=== PATIENT | male | born 1950 | race American Indian/Alaskan Native ===

== ENCOUNTER 2019-06-01 09:33 | Inpatient (IN) | payer OTHER, MEDICARE ==
[2019-06-01] MEDS ORDERED: methylPREDNISolone Sod Succinate 125 MG/2 ML INJ IV ONE (10:05)
[2019-06-01 10:32] LABS: Basophils % (Auto) 0.2 % (0.0-1.8); Eosinophils # (Auto) 0.1 K/mm3 (0.0-0.4); Eosinophils % (Auto) 0.8 % (0.0-4.3); Hematocrit 43.8 % (35.5-45.6); Hemoglobin 14.8 gm/dl (11.8-15.2); Lymphocytes # (Auto) 1.2 K/mm3 (1.2-5.4); Lymphocytes % (Auto) 12.1 % (13.4-35.0); Mean Corpuscular HGB Conc 34 % (32-34); Mean Corpuscular Volume 89 fl (84-94); Monocytes # (Auto) 0.6 K/mm3 (0.0-0.8); Monocytes % (Auto) 6.4 % (0.0-7.3); Platelet Count 186 K/mm3 (140-440); Red Blood Count 4.94 M/mm3 (3.65-5.03); Red Cell Distribution Width 13.5 % (13.2-15.2)
--- NOTE | 2019-06-01 10:35 | XRay Report ---
CHEST 1 VIEW INDICATION / CLINICAL INFORMATION: sob. Dyspnea. COMPARISON: None available. FINDINGS: SUPPORT DEVICES: None. HEART / MEDIASTINUM: No significant abnormality. LUNGS / PLEURA: Severe bilateral airspace pneumonia with small left pleural effusion. Signer Name: Jag Sylvester MD Signed: 06/01/2019 10:30 AM Workstation Name: [id number]
[2019-06-01 10:52] LABS: Alanine Aminotransferase 18 units/L (7-56); Albumin 3.7 g/dL (3.9-5); BUN/Creatinine Ratio 24; Blood Urea Nitrogen 17 mg/dL (9-20); Calcium 8.7 mg/dL (8.4-10.2); Hemolysis Index 13
--- NOTE | 2019-06-01 11:00 | Emergency Department Report ---
ED General Adult HPI - General Chief complaint: Dyspnea/Respdistress Stated complaint: SOB Time Seen by Provider: 06/01/19 10:05 Source: patient, EMS Mode of arrival: Stretcher Limitations: No Limitations - History of Present Illness Initial comments: The patient presents to the emergency department with a chief complaint of shortness of breath and not feeling well for the last couple days. Patient states his morning shortness breath came worse especially with walking. Upon EMS arrival the patient's O2 sats were in the low 80s. Patient does not have a history of COPD or asthma. She denies any chest pain, abdominal pain, or headache. -: Sudden Severity scale (0 -10): 0 Consistency: constant Improves with: none Worsens with: none Associated Symptoms: denies other symptoms Treatments Prior to Arrival: none - Related Data Home Medications Medication Instructions Recorded Confirmed Last Taken No Known Home Medications [No 03/17/15 03/17/15 Unknown Reported Home Medications] Allergies Allergy/AdvReac Type Severity Reaction Status Date / Time No Known Allergies Allergy Verified 03/17/15 19:42 ED Review of Systems ROS: Stated complaint: SOB Other details as noted in HPI Comment: All other systems reviewed and negative Constitutional: denies: chills, fever Eyes: denies: eye pain, eye discharge, vision change ENT: denies: ear pain, throat pain Respiratory: shortness of breath. denies: cough, wheezing Cardiovascular: denies: chest pain, palpitations Endocrine: no symptoms reported Gastrointestinal: denies: abdominal pain, nausea, diarrhea Genitourinary: denies: urgency, dysuria Musculoskeletal: denies: back pain, joint swelling, arthralgia Skin: denies: rash, lesions Neurological: denies: headache, weakness, paresthesias Psychiatric: denies: anxiety, depression Hematological/Lymphatic: denies: easy bleeding, easy bruising ED Past Medical Hx - Past Medical History Previous Medical History?: Yes Hx Diabetes: Yes (BORDERLINE,not on meds) - Surgical History Past Surgical History?: No Additional Surgical History: BILATERAL ROTATOR CUFF - Social History Smoking Status: Current Every Day Smoker Substance Use Type: Alcohol, Cocaine - Medications Home Medications: Home Medications Medication Instructions Recorded Confirmed Last Taken Type No Known Home Medications [No 03/17/15 03/17/15 Unknown History Reported Home Medications] ED Physical Exam - General Limitations: No Limitations General appearance: alert, in no apparent distress - Head Head exam: Present: atraumatic, normocephalic - Eye Eye exam: Present: normal appearance, PERRL, EOMI - ENT ENT exam: Present: mucous membranes moist - Neck Neck exam: Present: normal inspection - Respiratory Respiratory exam: Present: rales (rales B/L). Absent: respiratory distress - Cardiovascular Cardiovascular Exam: Present: normal rhythm, tachycardia. Absent: systolic murmur, diastolic murmur, rubs, gallop - GI/Abdominal GI/Abdominal exam: Present: soft, normal bowel sounds. Absent: distended, tenderness - Rectal Rectal exam: Present: deferred - Extremities Exam Extremities exam: Present: normal inspection - Back Exam Back exam: Present: normal inspection - Neurological Exam Neurological exam: Present: alert, oriented X3, CN II-XII intact. Absent: motor sensory deficit - Psychiatric Psychiatric exam: Present: normal affect, normal mood - Skin Skin exam: Present: warm, dry, intact, normal color. Absent: rash ED Course Vital Signs 06/01/19 06/01/19 06/01/19 09:40 09:46 09:47 Temperature 97.6 F Pulse Rate 108 H 108 H 108 H Respiratory 34 H 23 35 H Rate Blood Pressure 146/86 146/86 O2 Sat by Pulse 93 92 92 Oximetry 06/01/19 06/01/19 06/01/19 10:00 10:16 10:30 Temperature Pulse Rate 103 H 104 H 113 H Respiratory 27 H 29 H 26 H Rate Blood Pressure 137/86 148/88 161/94 O2 Sat by Pulse 92 94 94 Oximetry 06/01/19 06/01/19 06/01/19 10:46 10:59 11:00 Temperature Pulse Rate 103 H 102 H Respiratory 24 24 25 H Rate Blood Pressure 146/89 152/85 O2 Sat by Pulse 90 90 96 Oximetry 06/01/19 06/01/19 06/01/19 11:16 11:30 11:46 Temperature Pulse Rate 103 H 105 H 104 H Respiratory 19 21 26 H Rate Blood Pressure 140/85 158/91 156/87 O2 Sat by Pulse 94 93 92 Oximetry 06/01/19 06/01/19 12:00 12:30 Temperature Pulse Rate 102 H 105 H Respiratory 20 26 H Rate Blood Pressure 154/87 154/87 O2 Sat by Pulse 93 93 Oximetry ED Medical Decision Making - Lab Data Result diagrams: 06/01/19 10:16 06/01/19 10:16 Lab Results 06/01/19 06/01/19 06/01/19 Range/Units 10:16 10:16 10:16 WBC 10.1 (4.5-11.0) K/mm3 RBC 4.94 (3.65-5.03) M/mm3 Hgb 14.8 (11.8-15.2) gm/dl Hct 43.8 (35.5-45.6) % MCV 89 (84-94) fl MCH 30 (28-32) pg MCHC 34 (32-34) % RDW 13.5 (13.2-15.2) % Plt Count 186 (140-440) K/mm3 Lymph % (Auto) 12.1 L (13.4-35.0) % [place] % (Auto) 6.4 (0.0-7.3) % Eos % (Auto) 0.8 (0.0-4.3) % Baso % (Auto) 0.2 (0.0-1.8) % Lymph # 1.2 (1.2-5.4) K/mm3 [place] # 0.6 (0.0-0.8) K/mm3 Eos # 0.1 (0.0-0.4) K/mm3 Baso # 0.0 (0.0-0.1) K/mm3 Seg Neutrophils % 80.5 H (40.0-70.0) % Seg Neutrophils # 8.1 H (1.8-7.7) K/mm3 Sodium 137 (137-145) mmol/L Potassium 3.7 (3.6-5.0) mmol/L Chloride 101.8 (98-107) mmol/L Carbon Dioxide 21 L (22-30) mmol/L Anion Gap 18 mmol/L BUN 17 (9-20) mg/dL Creatinine 0.7 L (0.8-1.5) mg/dL Estimated GFR > 60 ml/min BUN/Creatinine Ratio 24 % Glucose 148 H (75-100) mg/dL Lactic Acid (0.7-2.0) mmol/L Calcium 8.7 (8.4-10.2) mg/dL Total Bilirubin 0.40 (0.1-1.2) mg/dL AST 21 (5-40) units/L ALT 18 (7-56) units/L Alkaline Phosphatase 54 (35-129) units/L Troponin T < 0.010 (0.00-0.029) ng/mL NT-Pro-B Natriuret Pep 567.6 (0-900) pg/mL Total Protein 6.6 (6.3-8.2) g/dL Albumin 3.7 L (3.9-5) g/dL Albumin/Globulin Ratio 1.3 % Urine Opiates Screen Urine Methadone Screen Ur Barbiturates Screen Ur Phencyclidine Scrn Ur Amphetamines Screen U Benzodiazepines Scrn Urine Cocaine Screen U Marijuana (THC) Screen Drugs of Abuse Note 06/01/19 06/01/19 06/01/19 Range/Units 10:58 11:57 11:57 WBC (4.5-11.0) K/mm3 RBC (3.65-5.03) M/mm3 Hgb (11.8-15.2) gm/dl Hct (35.5-45.6) % MCV (84-94) fl MCH (28-32) pg MCHC (32-34) % RDW (13.2-15.2) % Plt Count (140-440) K/mm3 Lymph % (Auto) (13.4-35.0) % [place] % (Auto) (0.0-7.3) % Eos % (Auto) (0.0-4.3) % Baso % (Auto) (0.0-1.8) % Lymph # (1.2-5.4) K/mm3 [place] # (0.0-0.8) K/mm3 Eos # (0.0-0.4) K/mm3 Baso # (0.0-0.1) K/mm3 Seg Neutrophils % (40.0-70.0) % Seg Neutrophils # (1.8-7.7) K/mm3 Sodium (137-145) mmol/L Potassium (3.6-5.0) mmol/L Chloride (98-107) mmol/L Carbon Dioxide (22-30) mmol/L Anion Gap mmol/L BUN (9-20) mg/dL Creatinine (0.8-1.5) mg/dL Estimated GFR ml/min BUN/Creatinine Ratio % Glucose (75-100) mg/dL Lactic Acid 1.10 (0.7-2.0) mmol/L Calcium (8.4-10.2) mg/dL Total Bilirubin (0.1-1.2) mg/dL AST (5-40) units/L ALT (7-56) units/L Alkaline Phosphatase (35-129) units/L Troponin T 0.011 (0.00-0.029) ng/mL NT-Pro-B Natriuret Pep (0-900) pg/mL Total Protein (6.3-8.2) g/dL Albumin (3.9-5) g/dL Albumin/Globulin Ratio % Urine Opiates Screen Presumptive negative Urine Methadone Screen Presumptive negative Ur Barbiturates Screen Presumptive negative Ur Phencyclidine Scrn Presumptive negative Ur Amphetamines Screen Presumptive negative U Benzodiazepines Scrn Presumptive negative Urine Cocaine Screen Presumptive positive U Marijuana (THC) Screen Presumptive negative Drugs of Abuse Note Disclamer - Radiology Data Radiology results: report reviewed - Medical Decision Making results discussed with patient Critical care attestation.: If time is entered above; I have spent that time in minutes in the direct care of this critically ill patient, excluding procedure time. ED Disposition Clinical Impression: Pneumonia Disposition: DC-09 OP ADMIT IP TO THIS HOSP Is pt being admited?: Yes Does the pt Need Aspirin: No Condition: Fair Instructions: Bacterial Pneumonia (ED)
[2019-06-01 11:16] LABS: Amphetamine Screen,Urine PRESUMPTIVE NEGATIVE; Benzodiazepines Screen,Urine PRESUMPTIVE NEGATIVE; Cannabinoid Screen,Urine PRESUMPTIVE NEGATIVE; Methadone Screen,Urine PRESUMPTIVE NEGATIVE; Opiate Screen,Urine PRESUMPTIVE NEGATIVE
[2019-06-01] MEDS ORDERED: SODIUM CHLORIDE 0.9% 1000 ML 2,500 ML IV ONE (11:19)
[2019-06-01 11:30] LABS: Cocaine Screen,Urine PRESUMPTIVE POSITIVE
[2019-06-01] MEDS ORDERED: ALBUTEROL 2.5 MG/3 ML NEBU IH PRN (12:22)
[2019-06-01] MEDS ORDERED: ACETAMINOPHEN 325 MG TAB PO PRN (12:22)
[2019-06-01] MEDS ORDERED: ONDANSETRON 4 MG/2 ML INJ IV PRN (12:22)
--- NOTE | 2019-06-01 12:24 | History and Physical Report ---
History of Present Illness Chief complaint: I feel sick History of present illness: 68 YO Male with DM, ETOH Dependence, Cocaine Dependence,Nicotine Dependence presents to ED for evaluation. Pt states that he has experienced shortness of breath, generalized weakness, and productive cough with yellow sputum over the past 1 week with worsening symptoms over the past 3 days. Pt states that he has just not been feeling well. EMS notified, and upon arrival the patient was found to be in distress. Pt transported to [facility]. Pt seen and evaluated in ED and found to have Bilateral Pneumonia complicated by Acute Hypoxemic Respiratory Failure with pulse oximetry of 82% on room air. Pt admitted to [facility] unit and initiated on Pneumonia Protocol, and placed on supplemental oxygen. Pt denies fever, chills, CP, Palpitations, Trauma, BRBPR, Hemoptysis, unintentional weight loss, night sweats, prolonged travel/immobility, unilateral leg swelling, calf pain, skin rash, individual/family history of DVT/PE/Bleeding/Blood Clotting Disorders. No prior admission for review. No mediation listed for reconciliation at time of admission. Past History Past Medical History: other (see hpi) Past Surgical History: Other (Bilateral shoulder surgery) Social history: single, smoking, alcohol abuse Family history: hypertension Medications and Allergies Allergies Allergy/AdvReac Type Severity Reaction Status Date / Time No Known Allergies Allergy Verified 03/17/15 19:42 Home Medications Medication Instructions Recorded Confirmed Last Taken Type No Known Home Medications [No 03/17/15 06/01/19 Unknown History Reported Home Medications] Active Meds: Active Medications Sodium Chloride (Nacl 0.9% 1000 Ml) 2,500 mls @ 999 mls/hr IV BOLUS ONE Stop: 06/01/19 13:49 Last Admin: 06/01/19 11:31 Dose: 999 mls/hr Documented by: Review of Systems Constitutional: no weight loss, no weight gain, no fever, no chills Ears, nose, mouth and throat: no ear pain, no tinnitis, no decreased hearing, no nasal congestion Cardiovascular: no chest pain, no orthopnea, no palpitations, no rapid/irregular heart beat, no edema Respiratory: cough, cough with sputum, shortness of breath, no hemoptysis, no dyspnea on exertion, no congestion Gastrointestinal: no nausea, no vomiting, no diarrhea, no constipation, no change in bowel habits Genitourinary Male: no hematuria, no flank pain, no discharge, no urinary frequency, no urinary hesitancy Rectal: no pain, no incontinence, no bleeding Musculoskeletal: no neck stiffness, no neck pain, no shooting arm pain, no arm numbness/tingling, no low back pain Integumentary: no rash, no pruritis, no redness, no sores, no wounds Neurological: no transient paralysis, no paralysis, no weakness, no parathesias, no tingling, no seizures Psychiatric: no anxiety, no change in sleep habits, no sleep disturbances, no hypersomnia, no change in appetite, no suicidal ideation, no hallucinations Endocrine: no cold intolerance, no heat intolerance, no polyphagia, no polydipsia, no excessive sweating Hematologic/Lymphatic: no easy bruising, no easy bleeding, no lymphadenopathy, no lymphedema Allergic/Immunologic: no urticaria, no persistent infections, no anaphylaxis Exam - Constitutional Vitals: Temp Pulse Resp BP Pulse Ox 97.6 F 104 H 26 H 156/87 92 06/01/19 09:47 06/01/19 11:46 06/01/19 11:46 06/01/19 11:46 06/01/19 11:46 General appearance: Present: mild distress - EENT Eyes: Present: PERRL ENT: hearing intact, clear oral mucosa - Neck Neck: Present: supple, normal ROM - Respiratory Respiratory effort: normal Respiratory: bilateral: diminished, rales - Cardiovascular Heart Sounds: Present: S1 & S2. Absent: rub, click - Extremities Extremities: pulses symmetrical, No edema Peripheral Pulses: within normal limits - Abdominal General gastrointestinal: Present: soft, non-tender, non-distended, normal bowel sounds Male genitourinary: Present: normal - Integumentary Integumentary: Present: clear, warm, dry - Musculoskeletal Musculoskeletal: generalized weakness - Psychiatric Psychiatric: appropriate mood/affect, intact judgment & insight - Neurologic Neurologic: CNII-XII intact, moves all extremities Results - Labs CBC & Chem 7: 06/01/19 10:16 06/01/19 10:16 Labs: Abnormal lab results 06/01/19 06/01/19 Range/Units 10:16 10:16 Lymph % (Auto) 12.1 L (13.4-35.0) % Seg Neutrophils % 80.5 H (40.0-70.0) % Seg Neutrophils # 8.1 H (1.8-7.7) K/mm3 Carbon Dioxide 21 L (22-30) mmol/L Creatinine 0.7 L (0.8-1.5) mg/dL Glucose 148 H (75-100) mg/dL Albumin 3.7 L (3.9-5) g/dL Assessment and Plan - Patient Problems (1) Pneumonia Current Visit: Yes Status: Acute Qualifiers: Laterality: bilateral Plan to address problem: Pneumonia Protocol: IV antibiotic therapy, CBC, CMP, Supplemental oxygen, nebulizer therapy, pulse oximetry, chest x ray, NIPPV as clinically indicated. (2) Acute respiratory failure Current Visit: Yes Status: Acute Qualifiers: Respiratory failure complication: hypoxia Qualified Code(s): J96.01 - Acute respiratory failure with hypoxia Plan to address problem: Supplemental oxygen, nebulizer therapy, pulse oximetry, chest x ray, NIPPV as clinically indicated. (3) Nicotine dependence Current Visit: Yes Status: Acute Qualifiers: Nicotine product type: unspecified Substance use status: in withdrawal Qualified Code(s): F17.203 - Nicotine dependence unspecified, with withdrawal Plan to address problem: Smoking cessation counseling, supportive care. (4) Cocaine dependence Current Visit: Yes Status: Acute Qualifiers: Complication of substance-induced condition: uncomplicated Plan to address problem: supportive care, outpatient F/U care. (5) EtOH dependence Current Visit: Yes Status: Acute Qualifiers: Substance use status: uncomplicated Qualified Code(s): F10.20 - Alcohol dependence, uncomplicated Plan to address problem: CIWA protocol, thiamine, folic acid, multivitamin daily, (6) DVT prophylaxis Current Visit: Yes Status: Acute Plan to address problem: SCD to BLE while in bed,
[2019-06-01] MEDS: ENOXAPARIN 40 MG/0.4 ML INJ SUB-Q SCH (22:24)
[2019-06-01] MEDS: INSULIN LISPRO 100 UNIT/ML SUB-Q SCH (22:24)
[2019-06-02 04:26] LABS: Basophils % (Auto) 0.2 % (0.0-1.8); Hematocrit 42.3 % (35.5-45.6); Hemoglobin 14.3 gm/dl (11.8-15.2); Lymphocytes # (Auto) 1.4 K/mm3 (1.2-5.4); Mean Corpuscular HGB Conc 34 % (32-34); Mean Corpuscular Volume 88 fl (84-94); Monocytes # (Auto) 1.1 K/mm3 (0.0-0.8); Monocytes % (Auto) 7.6 % (0.0-7.3); Platelet Count 216 K/mm3 (140-440); Red Blood Count 4.82 M/mm3 (3.65-5.03); Red Cell Distribution Width 13.6 % (13.2-15.2)
[2019-06-02 04:42] LABS: Alanine Aminotransferase 16 units/L (7-56); Albumin 3.9 g/dL (3.9-5); BUN/Creatinine Ratio 33; Blood Urea Nitrogen 20 mg/dL (9-20); Calcium 8.9 mg/dL (8.4-10.2); Hemolysis Index 1
[2019-06-02] MEDS: INSULIN LISPRO 100 UNIT/ML SUB-Q SCH ×3 (07:29→17:16)
[2019-06-02] MEDS: cefTRIAXone/NS 2 GM/100 ML 2 GM/100 ML BAG IV SCH (09:52)
[2019-06-02] MEDS ORDERED: AZITHROMYCIN 500 MG in SODIUM CHLORIDE 0.9% 250ML 250 ML IV SCH (10:00)
[2019-06-02] MEDS ORDERED: cefTRIAXone/NS 2 GM/100 ML 2 GM/100 ML BAG IV SCH (10:00)
[2019-06-02] MEDS: AZITHROMYCIN 500 MG in SODIUM CHLORIDE 0.9% 250ML 250 ML IV SCH (11:17)
[2019-06-02] MEDS: IPRATROPIUM/ALBUTEROL SULFATE 3 ML AMPUL.NEB IH SCH ×3 (11:25→21:00)
--- NOTE | 2019-06-02 11:40 | XRay Report ---
CHEST 1 VIEW INDICATION: Shortness of breath. COMPARISON: 06/01/2019 FINDINGS: Support devices: None. Heart: Borderline heart size. Lungs/Pleura: Bilateral perihilar airspace opacities have developed most consistent with pulmonary ed gwen. Bilateral infiltrates could also be considered. Small left pleural effusion is identified. No pn eumothorax. Additional findings: None. IMPRESSION: Mild CHF Signer Name: Onesimo Morin Jr, MD Signed: 06/02/2019 11:35 AM Workstation Name: [id number]
[2019-06-02] MEDS ORDERED: FUROSEMIDE 40 MG/4 ML INJ IV ONE (12:00)
--- NOTE | 2019-06-02 13:41 | Progress Note ---
Assessment and Plan /Bilateral Pneumonia with sepsis - POA Continue Pneumonia Protocol: IV antibiotic therapy, Supplemental oxygen, nebulizer therapy, pulse oximetry, NIPPV as clinically indicated. / Acute hypoxic respiratory failure Due to bilateral pneumonia and possible underlying COPD based on ongoing long- term tobacco abuse Supplemental oxygen, nebulizer therapy, pulse oximetry, NIPPV as clinically indicated. / Nicotine dependence/tobacco abuse Smoking cessation counseling done, supportive care. Nicotine patch if needed ;/ Cocaine dependence supportive care, outpatient F/U / EtOH dependence [facility] protocol, thiamine, folic acid, multivitamin daily, / DVT prophylaxis SCD to BLE while in bed, Disposition: Continue current management, wean off O2. DC planning and clinically improves Physical exam: GENERAL: well-developed -[place] male lying on bed appeared to be in no mild discomfort. HEENT: Normocephalic. Atraumatic. No conjunctival congestion or icterus. Patient has moist mucous membranes. NECK: Supple. Trachea midline. CHEST/LUNGS: Positive rhonchi and wheezes auscultated bilaterally, breathing nonlabored. HEART/CARDIOVASCULAR: Regular in rate and rhythm. S1 and S2 positive. ABDOMEN: Abdomen is soft, nontender. Patient has normal bowel sounds. SKIN: There is no rash. Warm and dry. NEURO: No focal motor deficit. Follows command. MUSCULOSKELETAL: No joint effusion or tenderness. EXTRIMITY: No edema, no cyanosis or clubbing. PSYCH: Cooperative. Subjective Date of service: 06/02/19 Interval history: Patient seen and examined. Medical records and medication list reviewed. No acute event overnight noted by the RN. Patient complains of cough, pleuritic chest pain. Also has difficulty breathing on minimal exertion -placed on oxygen. Patient is tolerating diet. Discussed plan of care at bedside with patient. Objective - Constitutional Vitals: Vital Signs - 12hr 06/02/19 06/02/19 06/02/19 01:43 08:02 08:39 Temperature 98.4 F 98.5 F Pulse Rate 103 H 101 H Pulse Rate [ Bilateral Throughout] Pulse Rate [ Right Brachial] Respiratory 18 20 Rate Respiratory Rate [Bilateral Throughout] Blood Pressure 152/96 145/97 O2 Sat by Pulse 95 94 93 Oximetry 06/02/19 06/02/19 06/02/19 11:25 11:54 13:00 Temperature Pulse Rate 97 H Pulse Rate [ 118 H Bilateral Throughout] Pulse Rate [ 97 H Right Brachial] Respiratory 26 H 20 Rate Respiratory 30 H Rate [Bilateral Throughout] Blood Pressure O2 Sat by Pulse 95 97 Oximetry - Labs CBC & Chem 7: 06/04/19 04:22 06/04/19 04:22 Labs: Abnormal lab results 06/01/19 06/01/19 06/02/19 Range/Units 16:30 22:31 04:06 WBC 15.1 H (4.5-11.0) K/mm3 Lymph % (Auto) 9.0 L (13.4-35.0) % [place] % (Auto) 7.6 H (0.0-7.3) % [place] # 1.1 H (0.0-0.8) K/mm3 Seg Neutrophils % 83.2 H (40.0-70.0) % Seg Neutrophils # 12.6 H (1.8-7.7) K/mm3 Creatinine (0.8-1.5) mg/dL Glucose (75-100) mg/dL POC Glucose 248 H 251 H (70-105) 06/02/19 06/02/19 06/02/19 Range/Units 04:06 04:23 07:34 WBC (4.5-11.0) K/mm3 Lymph % (Auto) (13.4-35.0) % [place] % (Auto) (0.0-7.3) % [place] # (0.0-0.8) K/mm3 Seg Neutrophils % (40.0-70.0) % Seg Neutrophils # (1.8-7.7) K/mm3 Creatinine 0.6 L (0.8-1.5) mg/dL Glucose 144 H (75-100) mg/dL POC Glucose 117 H 112 H (70-105)
[2019-06-02] MEDS: ENOXAPARIN 40 MG/0.4 ML INJ SUB-Q SCH (22:36)
[2019-06-02] MEDS: LORazepam 2 MG/ML VIAL IV PRN (22:37)
[2019-06-03] MEDS: IPRATROPIUM/ALBUTEROL SULFATE 3 ML AMPUL.NEB IH SCH ×4 (04:05→20:52)
[2019-06-03] MEDS: INSULIN LISPRO 100 UNIT/ML SUB-Q SCH ×4 (07:54→22:33)
[2019-06-03] MEDS: cefTRIAXone/NS 2 GM/100 ML 2 GM/100 ML BAG IV SCH (09:08)
[2019-06-03 09:14] LABS: Creatine Kinase MB 3.1 ng/mL (0.0-4.0)
[2019-06-03] MEDS: AZITHROMYCIN 500 MG in SODIUM CHLORIDE 0.9% 250ML 250 ML IV SCH (10:39)
[2019-06-03] MEDS ORDERED: FLU VACC QUAD 2019-20 (3 YR UP)/PF 60 MCG/0.5 ML SYRINGE IM ONE (11:52)
--- NOTE | 2019-06-03 15:18 | Progress Note ---
Assessment and Plan / Acute hypoxic respiratory failure Due to bilateral pneumonia and possible underlying COPD based on ongoing long- term tobacco abuse Supplemental oxygen, nebulizer therapy, pulse oximetry, NIPPV as clinically indicated. /Bilateral Pneumonia with sepsis - POA Continue Pneumonia Protocol: IV antibiotic therapy, Supplemental oxygen, nebuli zer therapy, pulse oximetry, NIPPV as clinically indicated. / Nicotine dependence/tobacco abuse Smoking cessation counseling done, supportive care. Nicotine patch if needed ;/ Cocaine dependence supportive care, outpatient F/U / EtOH dependence [facility] protocol, thiamine, folic acid, multivitamin daily, / DVT prophylaxis SCD to BLE while in bed, Disposition: Continue current management, wean off O2. Possible DC tomorrow morning Physical exam: GENERAL: well-developed -[place] male lying on bed appeared to be in no mild discomfort. HEENT: Normocephalic. Atraumatic. No conjunctival congestion or icterus. Patient has moist mucous membranes. NECK: Supple. Trachea midline. CHEST/LUNGS: few rhonchi and wheezes auscultated bilaterally, breathing nonlabored. HEART/CARDIOVASCULAR: Regular in rate and rhythm. S1 and S2 positive. ABDOMEN: Abdomen is soft, nontender. Patient has normal bowel sounds. SKIN: There is no rash. Warm and dry. NEURO: No focal motor deficit. Follows command. MUSCULOSKELETAL: No joint effusion or tenderness. EXTRIMITY: No edema, no cyanosis or clubbing. PSYCH: Cooperative. Subjective Date of service: 06/03/19 Interval history: Patient seen and examined. Medical records and medication list reviewed. No acute event overnight noted by the RN. Patient still complains of cough, improved difficulty breathing , stable on oxygen. Patient is tolerating diet. Discussed plan of care at bedside with patient. Objective - Constitutional Vitals: Vital Signs - 12hr 06/03/19 06/03/19 06/03/19 07:17 08:12 08:15 Temperature 99.1 F Pulse Rate 105 H Pulse Rate [ 106 H Bilateral Throughout] Respiratory 20 Rate Respiratory 24 Rate [Bilateral Throughout] Blood Pressure 152/90 O2 Sat by Pulse 89 94 Oximetry 06/03/19 06/03/19 13:11 14:37 Temperature 98.6 F Pulse Rate 107 H Pulse Rate [ 106 H Bilateral Throughout] Respiratory 20 Rate Respiratory 22 Rate [Bilateral Throughout] Blood Pressure 152/99 O2 Sat by Pulse 91 Oximetry - Labs CBC & Chem 7: 06/04/19 04:22 06/04/19 04:22 Labs: Abnormal lab results 06/02/19 06/03/19 06/03/19 Range/Units 16:18 07:16 08:36 POC Glucose 175 H 122 H (70-105) CK-MB (CK-2) Rel Index 5.6 H (0-4) 06/03/19 06/03/19 Range/Units 11:25 11:52 POC Glucose 154 H 130 H (70-105) CK-MB (CK-2) Rel Index (0-4)
[2019-06-03] MEDS: ENOXAPARIN 40 MG/0.4 ML INJ SUB-Q SCH (22:36)
[2019-06-03] MEDS: LORazepam 2 MG/ML VIAL IV PRN (22:49)
[2019-06-04 04:53] LABS: Basophils % (Auto) 0.3 % (0.0-1.8); Eosinophils # (Auto) 0.1 K/mm3 (0.0-0.4); Eosinophils % (Auto) 1.3 % (0.0-4.3); Hemoglobin 14.7 gm/dl (11.8-15.2); Lymphocytes # (Auto) 1.7 K/mm3 (1.2-5.4); Lymphocytes % (Auto) 17.3 % (13.4-35.0); Mean Corpuscular HGB Conc 34 % (32-34); Mean Corpuscular Volume 88 fl (84-94); Monocytes # (Auto) 0.8 K/mm3 (0.0-0.8); Monocytes % (Auto) 7.9 % (0.0-7.3); Platelet Count 195 K/mm3 (140-440); Red Blood Count 4.87 M/mm3 (3.65-5.03); Red Cell Distribution Width 13.4 % (13.2-15.2)
[2019-06-04 05:08] LABS: BUN/Creatinine Ratio 36; Blood Urea Nitrogen 25 mg/dL (9-20); Calcium 8.7 mg/dL (8.4-10.2); Hemolysis Index 6
[2019-06-04] MEDS: INSULIN LISPRO 100 UNIT/ML SUB-Q SCH (07:22)
[2019-06-04] MEDS: IPRATROPIUM/ALBUTEROL SULFATE 3 ML AMPUL.NEB IH SCH ×2 (08:31→14:13)
[2019-06-04] MEDS: cefTRIAXone/NS 2 GM/100 ML 2 GM/100 ML BAG IV SCH (09:21)
[2019-06-04] MEDS: AZITHROMYCIN 500 MG in SODIUM CHLORIDE 0.9% 250ML 250 ML IV SCH (10:45)
[2019-06-04 13:58] VITALS: BP 139/83
--- NOTE | 2019-06-04 15:15 | Discharge Summary ---
Providers - Providers Date of Admission: 06/01/19 12:22 Date of discharge: 06/04/19 Attending physician: SONYA MCGRAW 06/02/19 09:49 Physical Therapy Evaluation and Treat [CONS] Routine Comment: Reason For Exam: Weakness [facility] Condition: Fair Pertinent studies: Chest x-rays Hospital course: 68 YO Male with DM, ETOH Dependence, Cocaine Dependence,Nicotine Dependence presents to ED for evaluation of progressive shortness of breath, generalized weakness, and productive cough with yellow sputum over the past 1 week. EMS notified, and Pt transported to [facility]. Pt seen and evaluated in ED and found to have Bilateral Pneumonia complicated by Acute Hypoxemic Respiratory Failure with pulse oximetry of 82% on room air. Pt admitted to [facility] unit and initiated on Pneumonia Protocol, and placed on supplemental oxygen. Patient was continued with scheduled nebs, iv abx, and supplemental O2 to keep O2 sat at 94%. CXR showed bilateral infiltrates. Patients symptom improved with medical management. Patient was then discharged home in stable condition with outpt f/u. Discharge Diagnosis and Mx; / Acute hypoxic respiratory failure Due to bilateral pneumonia and possible underlying COPD based on ongoing long- term tobacco abuse treated with Supplemental oxygen, nebulizer therapy, iv abx, NIPPV as clinically indicated. /Bilateral Pneumonia with sepsis - POA treated with abx / Nicotine dependence/tobacco abuse Smoking cessation counseling done, supportive care. ;/ Cocaine dependence supportive care, outpatient F/U / EtOH dependence s/p CIWA protocol, thiamine, folic acid, multivitamin daily, / DVT prophylaxis SCD to BLE while in bed, Disposition: MT home Physical exam: GENERAL: well-developed -[place] male lying on bed appeared to be in no mild discomfort. HEENT: Normocephalic. Atraumatic. No conjunctival congestion or icterus. Patient has moist mucous membranes. NECK: Supple. Trachea midline. CHEST/LUNGS: very few rhonchi and wheezes auscultated bilaterally, breathing nonlabored. HEART/CARDIOVASCULAR: Regular in rate and rhythm. S1 and S2 positive. ABDOMEN: Abdomen is soft, nontender. Patient has normal bowel sounds. SKIN: There is no rash. Warm and dry. NEURO: No focal motor deficit. Follows command. MUSCULOSKELETAL: No joint effusion or tenderness. EXTRIMITY: No edema, no cyanosis or clubbing. PSYCH: Cooperative. Disposition: DC-01 TO HOME OR SELFCARE Time spent for discharge: 34 minutes Core Measure Documentation - Palliative Care Palliative Care/ Comfort Measures: Not Applicable - Core Measures Any of the following diagnoses?: none Exam - Constitutional Vitals: Temp Pulse Resp BP Pulse Ox 98.4 F 102 H 20 139/83 93 06/04/19 13:28 06/04/19 13:28 06/04/19 13:28 06/04/19 13:28 06/04/19 14:14 Plan Activity: advance as tolerated Weight Bearing Status: Weight Bear as Tolerated Diet: low fat, low salt Special Instructions: smoking cessation, other (alcohol cessation, ) [facility] [place] [Primary Care Provider] - 3-5 Days RAYMOND APARICIO MD [Staff Physician] - 7 Days Prescriptions: Amoxicillin/Potassium Clav [Augmentin 875-125 Tablet] 1 each PO BID #8 tablet ALBUTEROL Inhaler (OR & NICU) [ProAir HFA Inhaler] 2 puff IH QID PRN #8.5 gram PRN Reason: Shortness Of Breath
== END 2019-06-04 16:45 | disposition home or self-care (01) | DRG 871 ==
LOC: ED 09:33 → 2B-ACE 12:22
PROVIDERS: ADMIT Internal Medicine; ATTEND Internal Medicine
PROC: 5A09357 Assistance with Respiratory Ventilation, Less than 24 Consecutive Hours, Continuous Positive Airway Pressure (ICD-10-PCS; principal; 2019-06-02)
DX: A41.9 Sepsis, unspecified organism (principal); J18.9 Pneumonia, unspecified organism; J96.01 Acute respiratory failure with hypoxia; F14.20 Cocaine dependence, uncomplicated; F17.203 Nicotine dependence unspecified, with withdrawal; E11.9 Type 2 diabetes mellitus without complications; F10.20 Alcohol dependence, uncomplicated; Z71.6 Tobacco abuse counseling; Z82.49 Family history of ischemic heart disease and other diseases of the circulatory system
CPT/HCPCS: 36415; 71045; 80048; 80053; 80307; 82140; 82550; 82553; 82962; 83880; 84484; 85025; 87040; 87400; 93005; 93010; 94640; 94660; 94760; G0378; J0456; J0696; J1650; J1815; J1940; J2060; J2930; J7050

== ENCOUNTER 2020-03-08 18:31 | Inpatient (IN) | payer OTHER, MEDICARE ==
[2020-03-08] MEDS ORDERED: FUROSEMIDE 40 MG/4 ML INJ IV ONE (19:04)
--- NOTE | 2020-03-08 19:04 | Emergency Department Report ---
ED Shortness of Breath HPI - General Chief Complaint: Dyspnea/Respdistress Stated Complaint: SHORTNESS OF BREATH Time Seen by Provider: 03/08/20 18:49 Source: patient, EMS, old records reviewed Mode of arrival: Stretcher Limitations: No Limitations - History of Present Illness Initial Comments: This is a 69-year-old male with history of diabetes mellitus, CHF ejection fraction 30 to 35%, hypertension, mitral regurgitation, tricuspid regurgitation, pulmonary hypertension who presents with shortness of breath for several days. Patient arrived via EMS. Upon EMS arrival pulse oximetry 89% on room air which is hypoxic. Upon arrival here was confirmed to be 88%. He is now 95% oxygen saturation improved normal with Venturi mask in place. He has been compliant with medications. He endorses PND orthopnea. Denies leg swelling. Recently started treatment outpatient with ballistics teacher Dr. Vásquez and Dr. Ramires. He informed nursing staff that he smoked tobacco and cocaine today. MD Complaint: shortness of breath -: Gradual Severity: moderate Consistency: constant Improves With: oxygen Worsens With: lying flat, exertion Known History Of: congestive heart failure - Related Data Previous Rx's Medication Instructions Recorded Last Taken Type Furosemide [Lasix TAB] 40 mg PO QDAY #90 tablet 08/28/19 Unknown Rx Multivitamin Tab [Multiple Vitamin 1 each PO QDAY #30 tablet 08/28/19 Unknown Rx TAB (Theragran)] Potassium Chloride [K-Dur] 20 meq PO QDAY #30 tablet 08/28/19 Unknown Rx carvediloL [Coreg] 6.25 mg PO BID #180 tablet 08/28/19 Unknown Rx lisinopriL [Zestril TAB] 40 mg PO QDAY #90 tablet 08/28/19 Unknown Rx Allergies Allergy/AdvReac Type Severity Reaction Status Date / Time No Known Allergies Allergy Verified 08/26/19 15:21 ED Review of Systems ROS: Stated complaint: SHORTNESS OF BREATH Other details as noted in HPI Comment: All other systems reviewed and negative Constitutional: denies: fever, malaise Respiratory: shortness of breath Cardiovascular: denies: chest pain Gastrointestinal: denies: abdominal pain, nausea, vomiting ED Past Medical Hx - Past Medical History Previous Medical History?: Yes Hx Hypertension: Yes (PT. DENIES) Hx Congestive Heart Failure: Yes Hx Diabetes: Yes (BORDERLINE,not on meds) - Surgical History Past Surgical History?: Yes Additional Surgical History: BILATERAL ROTATOR CUFF - Social History Smoking Status: Current Some Day Smoker Substance Use Type: Alcohol, Cocaine, Marijuana - Medications Home Medications: Home Medications Medication Instructions Recorded Confirmed Last Taken Type Furosemide [Lasix TAB] 40 mg PO QDAY #90 tablet 08/28/19 Unknown Rx Multivitamin Tab [Multiple Vitamin 1 each PO QDAY #30 tablet 08/28/19 Unknown Rx TAB (Theragran)] Potassium Chloride [K-Dur] 20 meq PO QDAY #30 tablet 08/28/19 Unknown Rx carvediloL [Coreg] 6.25 mg PO BID #180 tablet 08/28/19 Unknown Rx lisinopriL [Zestril TAB] 40 mg PO QDAY #90 tablet 08/28/19 Unknown Rx ED Physical Exam - General Limitations: No Limitations General appearance: alert, in no apparent distress, other (Appears comfortable at rest with Venturi mask in place) - Head Head exam: Present: atraumatic, normocephalic - Eye Eye exam: Present: normal appearance - ENT ENT exam: Present: mucous membranes moist - Neck Neck exam: Present: normal inspection, full ROM - Respiratory Respiratory exam: Present: rales, decreased breath sounds. Absent: respiratory distress, wheezes, rhonchi - Cardiovascular Cardiovascular Exam: Present: regular rate, normal rhythm, normal heart sounds. Absent: rubs, gallop - GI/Abdominal GI/Abdominal exam: Present: soft, normal bowel sounds. Absent: distended, guarding, rebound - Rectal Rectal exam: Present: deferred - Extremities Exam Extremities exam: Present: normal inspection - Neurological Exam Neurological exam: Present: alert, oriented X3 - Psychiatric Psychiatric exam: Present: normal affect, normal mood - Skin Skin exam: Present: warm, dry, intact, normal color. Absent: rash ED Course Vital Signs 03/08/20 03/08/20 03/08/20 18:40 18:46 19:31 Temperature 97.4 F L Pulse Rate 98 H 95 H Respiratory 30 H 28 H 24 Rate Blood Pressure 132/86 Blood Pressure 132/86 133/85 [Right] O2 Sat by Pulse 88 95 97 Oximetry ED Medical Decision Making - Lab Data Result diagrams: 03/08/20 19:08 03/08/20 19:08 - Radiology Data Radiology results: report reviewed CHEST 1 VIEW INDICATION / CLINICAL INFORMATION: Dyspnea hypoxia CHF. COMPARISON: 08/28/2019 FINDINGS: SUPPORT DEVICES: None. HEART / MEDIASTINUM: Cardiomegaly with cephalization of the pulmonary vasculature. LUNGS / PLEURA: Mildly increased central/perihilar interstitial opacification as well as prominent haziness in the right peripheral mid/low lung field. No significant effusion. No pneumothorax. ADDITIONAL FINDINGS: No significant additional findings. IMPRESSION: 1. Pulmonary edema versus developing pneumonia. Recommend clinical correlation and continued follow-up until resolution. - Medical Decision Making Acute respiratory failure hypoxia, acute systolic heart failure. Patient currently on Venturi mask. He appears comfortable. IV diuresis initiated in the emergency department. Admitted to hospital service in fair condition. Critical care attestation.: If time is entered above; I have spent that time in minutes in the direct care of this critically ill patient, excluding procedure time. ED Disposition Clinical Impression: Acute respiratory failure with hypoxia, Acute HFrEF (heart failure with reduced ejection fraction) Disposition: 09 OP ADMIT IP TO THIS HOSP Is pt being admited?: Yes Does the pt Need Aspirin: No Condition: Stable
--- NOTE | 2020-03-08 19:41 | XRay Report ---
CHEST 1 VIEW INDICATION / CLINICAL INFORMATION: Dyspnea hypoxia CHF. COMPARISON: 08/28/2019 FINDINGS: SUPPORT DEVICES: None. HEART / MEDIASTINUM: Cardiomegaly with cephalization of the pulmonary vasculature. LUNGS / PLEURA: Mildly increased central/perihilar interstitial opacification as well as prominent taylor ziness in the right peripheral mid/low lung field. No significant effusion. No pneumothorax. ADDITIONAL FINDINGS: No significant additional findings. IMPRESSION: 1. Pulmonary edema versus developing pneumonia. Recommend clinical correlation and continued follow-u p until resolution. Signer Name: Alberto Danielson MD Signed: 03/08/2020 7:37 PM Workstation Name: [id number]
[2020-03-08 19:58] LABS: Basophils % (Auto) 0.2 % (0.0-1.8); Eosinophils # (Auto) 0.1 K/mm3 (0.0-0.4); Eosinophils % (Auto) 0.8 % (0.0-4.3); Hematocrit 46.1 % (35.5-45.6); Hemoglobin 15.7 gm/dl (11.8-15.2); Lymphocytes # (Auto) 0.8 K/mm3 (1.2-5.4); Lymphocytes % (Auto) 9.4 % (13.4-35.0); Mean Corpuscular HGB Conc 34 % (32-34); Mean Corpuscular Volume 92 fl (84-94); Monocytes # (Auto) 0.5 K/mm3 (0.0-0.8); Monocytes % (Auto) 5.1 % (0.0-7.3); Platelet Count 156 K/mm3 (140-440); Red Cell Distribution Width 13.4 % (13.2-15.2)
[2020-03-08 20:11] LABS: Alanine Aminotransferase 46 units/L (7-56); Albumin 3.8 g/dL (3.9-5); BUN/Creatinine Ratio 31; Blood Urea Nitrogen 25 mg/dL (9-20); Calcium 8.8 mg/dL (8.4-10.2); Hemolysis Index 3
[2020-03-08] MEDS ORDERED: ONDANSETRON 4 MG/2 ML INJ IV PRN (21:57)
[2020-03-08] MEDS ORDERED: MAGNESIUM HYDROXIDE (MOM) ORAL LIQD UDC PO PRN (21:57)
[2020-03-08] MEDS ORDERED: ACETAMINOPHEN 325 MG TAB PO PRN (21:57)
[2020-03-08] MEDS ORDERED: DEXTROSE 50% IN WATER (25GM) 50 ML SYRINGE IV PRN (21:57)
--- NOTE | 2020-03-08 22:06 | History and Physical Report ---
<ABDELRAHMAN THOMAS O - Last Filed: 03/09/20 06:59> History of Present Illness Date of examination: 03/08/20 Date of admission: 03/08/20 21:24 Chief complaint: Shortness of breath History of present illness: 69-year-old male with known history of diabetes mellitus, hypertension, history of mitral regurgitation, pulmonary hypertension, CHF with ejection fraction of 30 to 35% presenting to the emergency room today complaining of shortness of br eath which has been ongoing for the past few days. Patient was brought in by EMS and upon arrival her oxygen saturation was about 89% on room air patient was placed on Venturi mask with improvement of oxygen saturation to 95%. Patient indicates that he has been having orthopnea and paroxysmal nocturnal dyspnea. He also indicates that he has been compliant with his medications. He denies any fever or chills, no nausea vomiting, no headache or dizziness, denies any cough, no sick contacts or no recent travel. Patient denies any contact with anyone with COVID-19. Patient also admits that he smokes tobacco and cocaine today. He follows up with Pharmacist Critical Care -Dr. Vásquez and Dr. Ramires on outpatient basis Work-up today reveals mild pulmonary edema on chest x-ray. He also had a BNP elevation of about 1000. Past History Past Medical History: diabetes, heart failure (Ejection fraction of 30 to 35%), hyperlipidemia, other (Pulmonary hypertension) Past Surgical History: Other (Bilateral rotator cuff surgery) Social history: smoking (Smokes occasionally), alcohol abuse (Drinks alcohol occasionally), other (Uses marijuana occasionally) Family history: no significant family history Medications and Allergies Allergies Allergy/AdvReac Type Severity Reaction Status Date / Time No Known Allergies Allergy Verified 08/26/19 15:21 Home Medications Medication Instructions Recorded Confirmed Last Taken Type Furosemide [Lasix TAB] 40 mg PO QDAY #90 tablet 08/28/19 03/09/20 03/08/20 Rx Multivitamin Tab [Multiple Vitamin 1 each PO QDAY #30 tablet 08/28/19 03/09/20 Unknown Rx TAB (Theragran)] lisinopriL [Zestril TAB] 40 mg PO QDAY #90 tablet 08/28/19 03/09/20 03/08/20 Rx Aspirin [Aspirin BABY CHEW TAB] 81 mg PO QDAY tab.chew 03/10/20 Unknown Rx Furosemide [Lasix TAB] 40 mg PO QDAY 30 Days #30 tablet 03/10/20 Unknown Rx Insulin Lispro [Humalog] 0 unit SUB-Q ACHS vial 03/10/20 Unknown Rx Potassium Chloride [K-Dur] 20 meq PO QDAY 30 Days #30 tablet 03/10/20 Unknown Rx Spironolactone [Aldactone] 25 mg PO QDAY 30 Days #30 tablet 03/10/20 Unknown Rx carvediloL [Coreg] 12.5 mg PO BID tablet 03/10/20 Unknown Rx carvediloL [Coreg] 12.5 mg PO BID 30 Days #180 tablet 03/10/20 Unknown Rx lisinopriL [Zestril TAB] 40 mg PO QDAY 30 Days #30 tablet 03/10/20 Unknown Rx Active Meds: Active Medications Acetaminophen (Tylenol) 650 mg PO Q4H PRN PRN Reason: Pain MILD(1-3)/Fever >100.5/HENNING Dextrose (D50w (25gm) Syringe) 50 ml IV Q30MIN PRN; Protocol PRN Reason: Hypoglycemia Furosemide (Lasix) 40 mg IV BID@0600,1800 [facility] Insulin Human Lispro (Humalog) 0 unit SUB-Q ACHS [facility]; Protocol Magnesium Hydroxide (Milk Of Magnesia) 30 ml PO Q4H PRN PRN Reason: Constipation Ondansetron HCl (Zofran) 4 mg IV Q8H PRN PRN Reason: Nausea And Vomiting Sodium Chloride (Sodium Chloride Flush Syringe 10 Ml) 10 ml IV BID DARON Sodium Chloride (Sodium Chloride Flush Syringe 10 Ml) 10 ml IV PRN PRN PRN Reason: LINE FLUSH Review of Systems Constitutional: no fever, no chills Ears, nose, mouth and throat: no nasal congestion, no sore throat Cardiovascular: no chest pain, no palpitations, no leg edema Respiratory: shortness of breath, no cough Gastrointestinal: no abdominal pain, no nausea, no vomiting, no diarrhea Genitourinary Male: no dysuria, no hematuria, no flank pain Musculoskeletal: no neck pain, no low back pain Integumentary: no rash, no pruritis Neurological: no headaches, no confusion Psychiatric: no anxiety, no depression Exam - Constitutional Vitals: Temp Pulse Resp BP Pulse Ox 97.4 F L 95 H 24 133/85 97 03/08/20 18:46 03/08/20 19:31 03/08/20 19:31 03/08/20 19:31 03/08/20 19:31 General appearance: Present: no acute distress, well-nourished - EENT Eyes: Present: PERRL, EOM intact. Absent: scleral icterus ENT: hearing intact, clear oral mucosa, dentition normal - Neck Neck: Present: supple, normal ROM - Respiratory Respiratory effort: normal Respiratory: bilateral: rales - Cardiovascular Rhythm: regular Heart Sounds: Present: S1 & S2, systolic murmur (Soft systolic murmur). Absent: diastolic murmur - Extremities Extremities: no ischemia, pulses intact, pulses symmetrical, No edema, Full ROM Peripheral Pulses: within normal limits - Abdominal General gastrointestinal: Present: soft, non-tender, non-distended, normal bowel sounds. Absent: mass - Integumentary Integumentary: Present: clear, warm, dry. Absent: rash - Musculoskeletal Musculoskeletal: strength equal bilaterally - Psychiatric Psychiatric: appropriate mood/affect, intact judgment & insight, memory intact, cooperative - Neurologic Neurologic: CNII-XII intact, no focal deficits, moves all extremities HEART Score - HEART Score Troponin: Troponin T 0.022 ng/mL (0.00-0.029) 03/08/20 19:08 Results - Labs CBC & Chem 7: 03/09/20 03:51 03/09/20 03:51 Labs: Abnormal lab results 03/08/20 03/08/20 03/08/20 Range/Units 19:08 19:08 19:08 Hgb 15.7 H (11.8-15.2) gm/dl Hct 46.1 H (35.5-45.6) % Lymph % (Auto) 9.4 L (13.4-35.0) % Lymph # 0.8 L (1.2-5.4) K/mm3 Seg Neutrophils % 84.5 H (40.0-70.0) % BUN 25 H (9-20) mg/dL Glucose 154 H (75-100) mg/dL AST 74 H (5-40) units/L NT-Pro-B Natriuret Pep 1043 H (0-900) pg/mL Albumin 3.8 L (3.9-5) g/dL Assessment and Plan - Patient Problems (1) Acute HFrEF (heart failure with reduced ejection fraction) Current Visit: Yes Status: Acute Plan to address problem: Patient admitted to telemetry. Will place on diuretics and monitor daily weights and also monitor inputs and outputs. Patient will be scheduled for echocardiogram. We will schedule consult for cardiology evaluation. (2) Acute respiratory failure with hypoxia Current Visit: Yes Status: Acute Plan to address problem: Possibly secondary to the CHF exacerbation. We will keep O2 saturation greater or equal to 92%. (3) Hypertension Current Visit: No Status: Chronic Qualifiers: Hypertension type: essential hypertension Qualified Code(s): I10 - Essential (primary) hypertension Plan to address problem: We will resume routine home medications and monitor vital signs closely. (4) DVT prophylaxis Current Visit: No Status: Acute Plan to address problem: Patient placed on subcutaneous heparin. (5) Full code status Current Visit: Yes Status: Acute <EARNESTINE STERN - Last Filed: 03/10/20 15:06> History of Present Illness Date of admission: 03/09/20 12:02 Medications and Allergies Active Meds: Active Medications Acetaminophen (Tylenol) 650 mg PO Q4H PRN PRN Reason: Pain MILD(1-3)/Fever >100.5/HENNING Aspirin (Baby Aspirin) 81 mg PO QDAY [facility] Last Admin: 03/10/20 10:47 Dose: 81 mg Documented by: Carvedilol (Coreg) 12.5 mg PO BID [facility] Last Admin: 03/10/20 10:43 Dose: 12.5 mg Documented by: Dextrose (D50w (25gm) Syringe) 50 ml IV Q30MIN PRN; Protocol PRN Reason: Hypoglycemia Furosemide (Lasix) 40 mg PO QDAY [facility] Last Admin: 03/10/20 10:47 Dose: 40 mg Documented by: Heparin Sodium (Porcine) (Heparin) 5,000 unit SUB-Q Q8HR [facility] Last Admin: 03/10/20 06:10 Dose: 5,000 unit Documented by: Insulin Human Lispro (Humalog) 0 unit SUB-Q ACHS [facility]; Protocol Last Admin: 03/10/20 12:34 Dose: Not Given Documented by: Lisinopril (Zestril) 40 mg PO QDAY [facility] Last Admin: 03/10/20 10:43 Dose: 40 mg Documented by: Magnesium Hydroxide (Milk Of Magnesia) 30 ml PO Q4H PRN PRN Reason: Constipation Multivitamins (Theragran Tab) 1 each PO QDAY [facility] Last Admin: 03/10/20 10:44 Dose: 1 each Documented by: Ondansetron HCl (Zofran) 4 mg IV Q8H PRN PRN Reason: Nausea And Vomiting Potassium Chloride (K-Dur) 20 meq PO QDAY [facility] Last Admin: 03/10/20 10:43 Dose: 20 meq Documented by: Sodium Chloride (Sodium Chloride Flush Syringe 10 Ml) 10 ml IV BID [facility] Last Admin: 03/10/20 10:44 Dose: 10 ml Documented by: Sodium Chloride (Sodium Chloride Flush Syringe 10 Ml) 10 ml IV PRN PRN PRN Reason: LINE FLUSH Spironolactone (Aldactone) 25 mg PO QDAY [facility] Last Admin: 03/10/20 10:47 Dose: 25 mg Documented by: Exam - Constitutional Vitals: Temp Pulse Resp BP Pulse Ox 97.8 F 88 18 101/57 100 03/10/20 11:44 03/10/20 11:45 03/10/20 11:44 03/10/20 11:44 03/10/20 11:45 HEART Score - HEART Score Troponin: Troponin T 0.022 ng/mL (0.00-0.029) 03/08/20 19:08 Results - Labs CBC & Chem 7: 03/09/20 03:51 03/10/20 04:38 Labs: Abnormal lab results 03/09/20 03/09/20 03/10/20 Range/Units 16:12 22:12 04:38 Sodium 136 L (137-145) mmol/L BUN 35 H (9-20) mg/dL Glucose 293 H (75-100) mg/dL POC Glucose 165 H 162 H (70-105) 03/10/20 03/10/20 Range/Units 07:19 11:45 Sodium (137-145) mmol/L BUN (9-20) mg/dL Glucose (75-100) mg/dL POC Glucose 129 H 157 H (70-105)
[2020-03-08] MEDS: INSULIN LISPRO 100 UNIT/ML VIAL 3 mL SUB-Q SCH (23:50)
[2020-03-09] MEDS: INSULIN LISPRO 100 UNIT/ML VIAL 3 mL SUB-Q SCH ×4 (01:28→17:46)
[2020-03-09 05:06] LABS: Hematocrit 44.4 % (35.5-45.6); Mean Corpuscular HGB Conc 34 % (32-34); Mean Corpuscular Volume 93 fl (84-94); Platelet Count 171 K/mm3 (140-440); Red Blood Count 4.78 M/mm3 (3.65-5.03); Red Cell Distribution Width 13.3 % (13.2-15.2)
[2020-03-09 05:12] LABS: BUN/Creatinine Ratio 26; Blood Urea Nitrogen 23 mg/dL (9-20); Calcium 9.2 mg/dL (8.4-10.2); Hemolysis Index 6
[2020-03-09 05:18] LABS: INR 0.98 (0.87-1.13)
[2020-03-09] MEDS: HEPARIN 5,000 UNIT/1 ML VIAL SUB-Q SCH ×3 (05:50→21:20)
[2020-03-09] MEDS: FUROSEMIDE 40 MG/4 ML INJ IV SCH ×2 (05:50→17:44)
[2020-03-09 06:09] LABS: Band Neutrophils # (Manual) 0.3 K/mm3; Basophils % (Manual) 0 % (0.0-1.8); Eosinophils % (Manual) 0 % (0.0-4.3); Large Platelets Few; Platelet Estimate Consistent w Auto; Total Cells Counted 100
[2020-03-09] MEDS: MULTIVITAMINS ,THERAPEUTIC TAB PO SCH (09:19)
[2020-03-09] MEDS: LISINOPRIL 40 MG TAB PO SCH (09:19)
[2020-03-09] MEDS: POTASSIUM CHLORIDE ER 20 MEQ TAB PO SCH (09:20)
[2020-03-09] MEDS ORDERED: carvediloL 6.25 MG TAB PO SCH (10:00)
--- NOTE | 2020-03-09 11:17 | XRay Report ---
CHEST 2 VIEWS INDICATION: Pneumonia. COMPARISON: 03/08/2020 FINDINGS: Support devices: None. Heart: Stable mild cardiomegaly Lungs/pleura: Trace left pleural effusion is unchanged. The lungs are generally clear otherwise. No e vidence for pneumonia or pneumothorax. Additional findings: None. IMPRESSION: Stable mild cardiomegaly and trace left pleural effusion. Signer Name: Onesimo Morin Jr, MD Signed: 03/09/2020 11:13 AM Workstation Name: [id number]
--- NOTE | 2020-03-09 11:19 | Consultation ---
History of Present Illness Consult date: 03/09/20 Requesting physician: ABDELRAHMAN THOMAS Consult reason: congestive heart failure History of present illness: The pt is a 69 YO male with a past medical history of HFrEF, CMP, moderate to severe MR, mod pulm HTN with RVSP 55mmHg, HTN, prediabetes, tobacco use, cocaine use. He is followed in our office by Dr. BRITTNEY Vásquez (first visit was 08/12/2019). He presented with c/o progressively worsening SOB, orthopnea, PND for 1 day p rior to arrival. Patient was brought in by EMS and upon arrival her oxygen saturation was about 89% on room air patient was placed on Venturi mask with improvement of oxygen saturation to 95%. He denies any chest pain, palpitations, n/v, diaphoresis, dizziness or syncope. Pt admitted in ED to [facility] use yesterday. Pt underwent echo in our office on 08/20/2019 which showed EF 30-35%, mod LVH, gr claus II diastolic dysfunction, RV mildly dilated, LA vol mod increased, RA mildly dilated, mod to severe MR, mod TR, mod pulm HTN with RVSP 55mmHg, trace circumferential pericardial effusion. Lexiscan MPI stress test done 08/24/2019 was negative for significant ischemia, EF 27%. Past History Past Medical History: diabetes, heart failure (Ejection fraction of 30 to 35%), hyperlipidemia, other (Pulmonary hypertension) Past Surgical History: Other (Bilateral rotator cuff surgery) Social history: smoking (Smokes occasionally), alcohol abuse (Drinks alcohol occasionally), other (Uses marijuana occasionally) Family history: no significant family history Medications and Allergies Allergies Allergy/AdvReac Type Severity Reaction Status Date / Time No Known Allergies Allergy Verified 08/26/19 15:21 Home Medications Medication Instructions Recorded Confirmed Last Taken Type Furosemide [Lasix TAB] 40 mg PO QDAY #90 tablet 08/28/19 03/09/20 03/08/20 Rx Multivitamin Tab [Multiple Vitamin 1 each PO QDAY #30 tablet 08/28/19 03/09/20 Unknown Rx TAB (Theragran)] Potassium Chloride [K-Dur] 20 meq PO QDAY #30 tablet 08/28/19 03/09/20 Unknown Rx carvediloL [Coreg] 6.25 mg PO BID #180 tablet 08/28/19 03/09/20 03/08/20 Rx lisinopriL [Zestril TAB] 40 mg PO QDAY #90 tablet 08/28/19 03/09/20 03/08/20 Rx Active Meds: Active Medications Acetaminophen (Tylenol) 650 mg PO Q4H PRN PRN Reason: Pain MILD(1-3)/Fever >100.5/HENNING Carvedilol (Coreg) 6.25 mg PO BID [facility] Last Admin: 03/09/20 09:19 Dose: 6.25 mg Documented by: Dextrose (D50w (25gm) Syringe) 50 ml IV Q30MIN PRN; Protocol PRN Reason: Hypoglycemia Furosemide (Lasix) 40 mg IV BID@0600,1800 [facility] Last Admin: 03/09/20 05:50 Dose: 40 mg Documented by: Heparin Sodium (Porcine) (Heparin) 5,000 unit SUB-Q Q8HR [facility] Last Admin: 03/09/20 05:50 Dose: 5,000 unit Documented by: Insulin Human Lispro (Humalog) 0 unit SUB-Q ACHS [facility]; Protocol Last Admin: 03/09/20 09:14 Dose: 3 unit Documented by: Lisinopril (Zestril) 40 mg PO QDAY [facility] Last Admin: 03/09/20 09:19 Dose: 40 mg Documented by: Magnesium Hydroxide (Milk Of Magnesia) 30 ml PO Q4H PRN PRN Reason: Constipation Multivitamins (Theragran Tab) 1 each PO QDAY [facility] Last Admin: 03/09/20 09:19 Dose: 1 each Documented by: Ondansetron HCl (Zofran) 4 mg IV Q8H PRN PRN Reason: Nausea And Vomiting Potassium Chloride (K-Dur) 20 meq PO QDAY [facility] Last Admin: 03/09/20 09:20 Dose: 20 meq Documented by: Sodium Chloride (Sodium Chloride Flush Syringe 10 Ml) 10 ml IV BID [facility] Last Admin: 03/09/20 09:17 Dose: 10 ml Documented by: Sodium Chloride (Sodium Chloride Flush Syringe 10 Ml) 10 ml IV PRN PRN PRN Reason: LINE FLUSH Review of Systems Constitutional: no fever, no chills, no sweats Ears, nose, mouth and throat: no ear pain, no nose pain, no sinus pressure, no sinus pain Cardiovascular: orthopnea, edema, shortness of breath, dyspnea on exertion, no chest pain, no palpitations, no rapid/irregular heart beat, no syncope, no lightheadedness Respiratory: shortness of breath, dyspnea on exertion, no cough, no congestion, no wheezing, no pain on inspiration Gastrointestinal: no abdominal pain, no nausea, no vomiting, no diarrhea, no constipation, no change in bowel habits Genitourinary Male: no dysuria, no hematuria, no flank pain, no discharge, no urinary frequency, no urinary hesitancy Musculoskeletal: no neck stiffness, no neck pain, no shooting arm pain, no arm numbness/tingling, no low back pain, no shooting leg pain Integumentary: no rash, no pruritis, no redness, no sores, no wounds Neurological: no head injury, no paralysis, no weakness, no parathesias, no numbness, no tingling, no seizures, no syncope Psychiatric: no anxiety Endocrine: no cold intolerance, no heat intolerance Hematologic/Lymphatic: no easy bruising, no easy bleeding Allergic/Immunologic: no urticaria Physical Examination Vital Signs Pulse Resp Pulse Ox 100 H 29 H 91 03/08/20 18:38 03/08/20 18:38 03/08/20 18:38 General appearance: no acute distress HEENT: Positive: PERRL, Normocephaly, Mucus Membranes Moist Neck: Positive: neck supple, trachea midline Cardiac: Positive: Reg Rate and Rhythm, S1/S2, Systolic Murmur Lungs: Positive: Decreased Breath Sounds Neuro: Positive: Grossly Intact Abdomen: Negative: Tender Skin: Negative: Rash Musculoskeletal: No Pain Extremities: Absent: edema Results 03/09/20 03:51 03/09/20 03:51 Cardiac Enzymes 03/08/20 Range/Units 19:08 AST 74 H (5-40) units/L Coagulation 03/09/20 Range/Units 03:51 PT 13.1 (12.2-14.9) Sec. INR 0.98 (0.87-1.13) CBC 03/08/20 03/09/20 Range/Units 19:08 03:51 WBC 8.9 11.0 (4.5-11.0) K/mm3 RBC 5.00 4.78 (3.65-5.03) M/mm3 Hgb 15.7 H 15.0 (11.8-15.2) gm/dl Hct 46.1 H 44.4 (35.5-45.6) % Plt Count 156 171 (140-440) K/mm3 Lymph # 0.8 L (1.2-5.4) K/mm3 Harding # 0.5 (0.0-0.8) K/mm3 Eos # 0.1 (0.0-0.4) K/mm3 Baso # 0.0 (0.0-0.1) K/mm3 Comprehensive Metabolic Panel 03/08/20 03/09/20 Range/Units 19:08 03:51 Sodium 138 139 (137-145) mmol/L Potassium 4.2 4.0 (3.6-5.0) mmol/L Chloride 103.0 100.8 (98-107) mmol/L Carbon Dioxide 23 23 (22-30) mmol/L BUN 25 H 23 H (9-20) mg/dL Creatinine 0.8 0.9 (0.8-1.3) mg/dL Glucose 154 H 246 H (75-100) mg/dL Calcium 8.8 9.2 (8.4-10.2) mg/dL AST 74 H (5-40) units/L ALT 46 (7-56) units/L Alkaline Phosphatase 57 (35-129) units/L Total Protein 6.4 (6.3-8.2) g/dL Albumin 3.8 L (3.9-5) g/dL - Imaging and Cardiology Echo: report reviewed ( 08/20/2019 which showed EF 30-35%, mod LVH, grade II diastolic dysfunction, RV mildly dilated, LA vol mod increased, RA mildly dilated, mod to severe MR, mod TR, mod pulm HTN with RVSP 55mmHg, trace circumferential pericardial effusion. ) EKG: report reviewed, image reviewed EKG interpretations - Telemetry EKG Rhythm: Sinus Tachycardia - EKG Sinus rhythms and dysrhythmias: sinus rhythm Assessment and Plan tte reviewed - EF 40-45%, mild LVH, diastolic dysfunction, mild AR, mild MR, trace TR, RVSP 9mmHg. Agree with IV lasix BID. Resume home aldactone. Optimize HR - increase coreg to home dosage of 12.5mg BID. Cont home lisinopril. Will follow. The patient has been seen in conjunction with Dr. Mandadi who agrees with the assessment and plan of care. - Patient Problems (1) Acute HFrEF (heart failure with reduced ejection fraction) Current Visit: Yes Status: Acute (2) Cardiomyopathy Current Visit: Yes Status: Chronic (3) Sinus tachycardia Current Visit: Yes Status: Acute (4) HTN Current Visit: Yes Status: Chronic (5) History of cocaine use Current Visit: Yes Status: Chronic (6) Mitral regurgitation Current Visit: Yes Status: Chronic (7) Tricuspid regurgitation Current Visit: Yes Status: Chronic (8) Pulmonary hypertension Current Visit: Yes Status: Chronic (9) Tobacco use Current Visit: Yes Status: Chronic
--- NOTE | 2020-03-09 12:42 | Progress Note ---
Assessment and Plan Assessment and plan: Acute HFrEF (heart failure with reduced ejection fraction) ECHO with EF 40-45%, mild LVH, diastolic dysfunction, mild AR, mild MR, trace TR, RVSP 9mmHg. Cont.with IV lasix BID. Resume home aldactone. increase coreg to home dosage of 12.5mg BID. Cardiomyopathy As above Sinus tachycardia HTN Cont lisinopril History of cocaine use Mitral regurgitation Tricuspid regurgitation Pulmonary hypertension Tobacco use History Interval history: no new issues Hospitalist Physical - Constitutional Vitals: Temp Pulse Resp BP Pulse Ox 98.9 F 98 H 18 134/89 96 03/09/20 08:05 03/09/20 09:19 03/09/20 08:05 03/09/20 09:19 03/09/20 08:05 General appearance: Present: no acute distress - EENT Eyes: Present: PERRL, EOM intact ENT: hearing intact, clear oral mucosa, dentition normal - Neck Neck: Present: supple, normal ROM - Respiratory Respiratory effort: normal Respiratory: bilateral: CTA - Cardiovascular Rhythm: regular Heart Sounds: Present: S1 & S2. Absent: gallop, rub - Extremities Extremities: no ischemia, No edema, Full ROM - Abdominal General gastrointestinal: soft, non-tender, non-distended, normal bowel sounds - Integumentary Integumentary: Present: clear, warm, dry - Neurologic Neurologic: CNII-XII intact, moves all extremities HEART Score - HEART Score Troponin: Troponin T 0.022 ng/mL (0.00-0.029) 03/08/20 19:08 Results - Labs CBC & Chem 7: 03/09/20 03:51 03/09/20 03:51 Labs: Laboratory Last Values WBC 11.0 K/mm3 (4.5-11.0) 03/09/20 03:51 RBC 4.78 M/mm3 (3.65-5.03) 03/09/20 03:51 Hgb 15.0 gm/dl (11.8-15.2) 03/09/20 03:51 Hct 44.4 % (35.5-45.6) 03/09/20 03:51 MCV 93 fl (84-94) 03/09/20 03:51 MCH 32 pg (28-32) 03/09/20 03:51 MCHC 34 % (32-34) 03/09/20 03:51 RDW 13.3 % (13.2-15.2) 03/09/20 03:51 Plt Count 171 K/mm3 (140-440) 03/09/20 03:51 Lymph % (Auto) 9.4 % (13.4-35.0) L 03/08/20 19:08 Tucker % (Auto) 5.1 % (0.0-7.3) 03/08/20 19:08 Eos % (Auto) 0.8 % (0.0-4.3) 03/08/20 19:08 Baso % (Auto) 0.2 % (0.0-1.8) 03/08/20 19:08 Lymph # 0.8 K/mm3 (1.2-5.4) L 03/08/20 19:08 Tucker # 0.5 K/mm3 (0.0-0.8) 03/08/20 19:08 Eos # 0.1 K/mm3 (0.0-0.4) 03/08/20 19:08 Baso # 0.0 K/mm3 (0.0-0.1) 03/08/20 19:08 Add Manual Diff Complete 03/09/20 03:51 Total Counted 100 03/09/20 03:51 Seg Neutrophils % Secondary Spanish Teacher 03/09/20 03:51 Seg Neuts % (Manual) 90.0 % (40.0-70.0) H 03/09/20 03:51 Band Neutrophils % 3.0 % 03/09/20 03:51 Lymphocytes % (Manual) 4.0 % (13.4-35.0) L 03/09/20 03:51 Reactive Lymphs % (Man) 0 % 03/09/20 03:51 Monocytes % (Manual) 3.0 % (0.0-7.3) 03/09/20 03:51 Eosinophils % (Manual) 0 % (0.0-4.3) 03/09/20 03:51 Basophils % (Manual) 0 % (0.0-1.8) 03/09/20 03:51 Metamyelocytes % 0 % 03/09/20 03:51 Myelocytes % 0 % 03/09/20 03:51 Promyelocytes % 0 % 03/09/20 03:51 Blast Cells % 0 % 03/09/20 03:51 Nucleated RBC % Not Reportable 03/09/20 03:51 Seg Neutrophils # 7.5 K/mm3 (1.8-7.7) 03/08/20 19:08 Seg Neutrophils # Man 9.9 K/mm3 (1.8-7.7) H 03/09/20 03:51 Band Neutrophils # 0.3 K/mm3 03/09/20 03:51 Lymphocytes # (Manual) 0.4 K/mm3 (1.2-5.4) L 03/09/20 03:51 Abs React Lymphs (Man) 0.0 K/mm3 03/09/20 03:51 Monocytes # (Manual) 0.3 K/mm3 (0.0-0.8) 03/09/20 03:51 Eosinophils # (Manual) 0.0 K/mm3 (0.0-0.4) 03/09/20 03:51 Basophils # (Manual) 0.0 K/mm3 (0.0-0.1) 03/09/20 03:51 Metamyelocytes # 0.0 K/mm3 03/09/20 03:51 Myelocytes # 0.0 K/mm3 03/09/20 03:51 Promyelocytes # 0.0 K/mm3 03/09/20 03:51 Blast Cells # 0.0 K/mm3 03/09/20 03:51 WBC Morphology Not Reportable 03/09/20 03:51 Hypersegmented Neuts Not Reportable 03/09/20 03:51 Hyposegmented Neuts Not Reportable 03/09/20 03:51 Hypogranular Neuts Not Reportable 03/09/20 03:51 Smudge Cells Not Reportable 03/09/20 03:51 Toxic Granulation Not Reportable 03/09/20 03:51 Toxic Vacuolation Not Reportable 03/09/20 03:51 Dohle Bodies Not Reportable 03/09/20 03:51 Pelger-Huet Anomaly Not Reportable 03/09/20 03:51 Aileen Rods Not Reportable 03/09/20 03:51 Platelet Estimate Consistent w auto 03/09/20 03:51 Clumped Platelets Not Reportable 03/09/20 03:51 Plt Clumps, EDTA Not Reportable 03/09/20 03:51 Large Platelets Few 03/09/20 03:51 Giant Platelets Not Reportable 03/09/20 03:51 Platelet Satelliting Not Reportable 03/09/20 03:51 Plt Morphology Comment Not Reportable 03/09/20 03:51 RBC Morphology Not Reportable 03/09/20 03:51 Dimorphic RBCs Not Reportable 03/09/20 03:51 Polychromasia Not Reportable 03/09/20 03:51 Hypochromasia Not Reportable 03/09/20 03:51 Poikilocytosis Not Reportable 03/09/20 03:51 Anisocytosis Not Reportable 03/09/20 03:51 Microcytosis Not Reportable 03/09/20 03:51 Macrocytosis Not Reportable 03/09/20 03:51 Spherocytes Not Reportable 03/09/20 03:51 Pappenheimer Bodies Not Reportable 03/09/20 03:51 Sickle Cells Not Reportable 03/09/20 03:51 Target Cells Not Reportable 03/09/20 03:51 Tear Drop Cells Not Reportable 03/09/20 03:51 Ovalocytes Not Reportable 03/09/20 03:51 Helmet Cells Not Reportable 03/09/20 03:51 Sheikh-Hurlock Bodies Not Reportable 03/09/20 03:51 [place] Rings Not Reportable 03/09/20 03:51 Mereta Cells Not Reportable 03/09/20 03:51 Bite Cells Not Reportable 03/09/20 03:51 Crenated Cell Not Reportable 03/09/20 03:51 Elliptocytes Not Reportable 03/09/20 03:51 Acanthocytes (Spur) Not Reportable 03/09/20 03:51 Rouleaux Not Reportable 03/09/20 03:51 Hemoglobin C Crystals Not Reportable 03/09/20 03:51 Schistocytes Not Reportable 03/09/20 03:51 Malaria parasites Not Reportable 03/09/20 03:51 Silver Bodies Not Reportable 03/09/20 03:51 Hem Pathologist Commnt No 03/09/20 03:51 PT 13.1 Sec. (12.2-14.9) 03/09/20 03:51 INR 0.98 (0.87-1.13) 03/09/20 03:51 Sodium 139 mmol/L (137-145) 03/09/20 03:51 Potassium 4.0 mmol/L (3.6-5.0) 03/09/20 03:51 Chloride 100.8 mmol/L (98-107) 03/09/20 03:51 Carbon Dioxide 23 mmol/L (22-30) 03/09/20 03:51 Anion Gap 19 mmol/L 03/09/20 03:51 BUN 23 mg/dL (9-20) H 03/09/20 03:51 Creatinine 0.9 mg/dL (0.8-1.3) 03/09/20 03:51 Estimated GFR > 60 ml/min 03/09/20 03:51 BUN/Creatinine Ratio 26 % 03/09/20 03:51 Glucose 246 mg/dL (75-100) H 03/09/20 03:51 POC Glucose 224 (70-105) H 03/09/20 08:18 Calcium 9.2 mg/dL (8.4-10.2) 03/09/20 03:51 Total Bilirubin 0.50 mg/dL (0.1-1.2) 03/08/20 19:08 AST 74 units/L (5-40) H 03/08/20 19:08 ALT 46 units/L (7-56) 03/08/20 19:08 Alkaline Phosphatase 57 units/L (35-129) 03/08/20 19:08 Troponin T 0.022 ng/mL (0.00-0.029) 03/08/20 19:08 NT-Pro-B Natriuret Pep 1043 pg/mL (0-900) H 03/08/20 19:08 Total Protein 6.4 g/dL (6.3-8.2) 03/08/20 19:08 Albumin 3.8 g/dL (3.9-5) L 03/08/20 19:08 Albumin/Globulin Ratio 1.5 % 03/08/20 19:08 - Diagnostic Impressions Diagnostic Impressions: Echocardiogram 03/08/20 21:59 Transthoracic Echocardiogram Indication: SOB BP: 126/79 HR: 101 Conclusions *Global left ventricular systolic function is mild to moderately decreased. *The estimated ejection fraction is 40-45%. *There is an E to A reversal in the mitral valve flow pattern suggestive of diastolic dysfunction. *Mild concentric left ventricular hypertrophy is observed. *The right ventricular chamber size and systolic function are within normal limits. *There is mild aortic regurgitation. *There is mild mitral regurgitation. *There is trace tricuspid regurgitation. *There is mild pulmonic regurgitation. *There is mild dilatation of the ascending aorta. Findings Left Ventricle: The left ventricular chamber size is normal. Mild concentric left ventricular hypertrophy is observed. Global left ventricular systolic function is mild to moderately decreased. The estimated ejection fraction is 40-45%. There is an E to A reversal in the mitral valve flow pattern suggestive of diastolic dysfunction. Left Atrium: The left atrial chamber size is normal. Right Ventricle: The right ventricular chamber size and systolic function are within normal limits. Right Atrium: The right atrial cavity size is normal. Aortic Valve: The aortic valve is trileaflet. There is mild aortic regurgitation. Mitral Valve: There is mitral annular calcification. The mitral valve leaflets are mildly thickened. There is mild mitral regurgitation. Tricuspid Valve: The tricuspid valve leaflets are normal. There is trace tricuspid regurgitation. Pulmonic Valve: The pulmonic valve appears normal. There is mild pulmonic regurgitation. Pericardium: There is no pericardial effusion. Aorta: The aorta appears normal. There is mild dilatation of the ascending aorta. Venous: The inferior vena cava appears normal in size. Measurements Chambers 2D Name Value Normal Range IVSd (2D) 1.2 cm (0.6 - 1.1) LVPWd (2D) 1.18 cm (0.6 - 1.1) LVIDd (2D) 4.52 cm (3.7 - 5.6) LVIDs (2D) 3.47 cm (2 - 3.8) LV FS (2D) 23.34 % - EF Teichholz (2D) 46.85 % - Ao root diameter (2D) 3.89 cm (2 - 3.7) Volumes/Mass Name Value Normal Range LA ESV SP 4CH (A/L) 50.49 ml - LA ESV SP 2CH (A/L) 46.48 ml - LA ESV BP (A/L) 49.08 ml - LA ESV BP (A/L) index 27.73 ml/m2 - LA ESV SP 4CH (MOD) 47.07 ml - LA ESV SP 2CH (MOD) 43.4 ml - LA ESV BP (MOD) 45.29 ml - LA ESV BP (MOD) index 25.59 ml/m2 - LV EDV SP 4CH (MOD) 166.23 ml - LV ESV SP 4CH (MOD) 82.47 ml - EF SP 4CH (MOD) 50.39 % - LV EDV SP 2CH (MOD) 142.57 ml - LV ESV SP 2CH (MOD) 84.79 ml - EF SP 2CH (MOD) 40.53 % - LV EDV BP 153.9 ml - LV ESV BP 85.16 ml - BP EF (MOD) 44.67 % - Diastolic/Systolic Function Name Value Normal Range MV E-wave Vmax 0.65 m/sec - MV deceleration time 84.95 msec - MV A-wave Vmax 1.07 m/sec - MV E:A ratio 0.6 ratio - Aortic Valve Name Value Normal Range AV Vmax 1.02 m/sec - AV VTI 15.52 cm - AV peak gradient 4.17 mmHg - AV mean gradient 2.08 mmHg - LVOT diameter 2.29 cm - LVOT Vmax 0.87 m/sec - LVOT VTI 16.46 cm - LVOT peak gradient 3.04 mmHg - LVOT mean gradient 1.49 mmHg - SV LVOT 67.82 ml - ELLIOT (continuity Vmax) 3.52 cm2 - ELLIOT (continuity VTI) 4.37 cm2 - AR PHT 343.66 msec - AR peak gradient 27.77 mmHg - Ascending Ao 3.91 cm - Mitral Valve Name Value Normal Range MR Vmax 4.94 m/sec - Tricuspid Valve Name Value Normal Range TR Vmax 1.27 m/sec - TR peak gradient 6 mmHg - RAP 3 mmHg - RVSP 9 mmHg - IVC diameter 1.56 cm (1.2 - 2.3) Pulmonic Valve/Qp:Qs Name Value Normal Range PV Vmax 0.91 m/sec - PV VTI 14.38 cm - PV peak gradient 3.31 mmHg - PV mean gradient 1.78 mmHg - HI end-diastolic Vmax 1.25 m/sec - RVOT Vmax 0.77 m/sec - RVOT VTI 12.99 cm - RVOT peak gradient 2.38 mmHg - Medel/IV: Voiding Method Urinal IV Catheter Type [Right Hand] INT / Saline Lock IV Catheter Type [Right INT / Saline Lock Forearm] Active Medications - Current Medications Current Medications: Generic Name Dose Route Start Last Admin Trade Name Freq PRN Reason Stop Dose Admin Acetaminophen 650 mg 03/08/20 21:57 Tylenol PO Q4H PRN Pain MILD(1-3)/Fever >100.5/HENNING Carvedilol 12.5 mg 03/09/20 12:00 Coreg PO BID DARON Dextrose 50 ml 03/08/20 21:57 D50w (25gm) Syringe IV Q30MIN PRN Hypoglycemia Protocol Furosemide 40 mg 03/09/20 06:00 03/09/20 05:50 Lasix IV 40 mg BID@0600,1800 DARON Administration Heparin Sodium (Porcine) 5,000 unit 03/09/20 06:00 03/09/20 05:50 Heparin SUB-Q 5,000 unit Q8HR DARON Administration Insulin Human Lispro 0 unit 03/08/20 22:00 03/09/20 09:14 Humalog SUB-Q 3 unit ACHS DARON Administration Protocol Lisinopril 40 mg 03/09/20 10:00 03/09/20 09:19 Zestril PO 40 mg QDAY DARON Administration Magnesium Hydroxide 30 ml 03/08/20 21:57 Milk Of Magnesia PO Q4H PRN Constipation Multivitamins 1 each 03/09/20 10:00 03/09/20 09:19 Theragran Tab PO 1 each QDAY DARON Administration Ondansetron HCl 4 mg 03/08/20 21:57 Zofran IV Q8H PRN Nausea And Vomiting Potassium Chloride 20 meq 03/09/20 10:00 03/09/20 09:20 K-Dur PO 20 meq QDAY DARON Administration Sodium Chloride 10 ml 03/08/20 22:00 03/09/20 09:17 Sodium Chloride Flush Syringe 10 Ml IV 10 ml BID DARON Administration Sodium Chloride 10 ml 03/08/20 21:57 Sodium Chloride Flush Syringe 10 Ml IV PRN PRN LINE FLUSH Spironolactone 25 mg 03/10/20 10:00 Aldactone PO QDAY DARON
[2020-03-09] MEDS: carvediloL 12.5 MG TAB PO SCH ×2 (12:45→21:20)
[2020-03-10] MEDS: INSULIN LISPRO 100 UNIT/ML VIAL 3 mL SUB-Q SCH ×3 (00:03→12:34)
[2020-03-10 05:16] LABS: BUN/Creatinine Ratio 35; Blood Urea Nitrogen 35 mg/dL (9-20); Calcium 9.2 mg/dL (8.4-10.2); Hemolysis Index 10
[2020-03-10] MEDS: FUROSEMIDE 40 MG/4 ML INJ IV SCH (06:09)
[2020-03-10] MEDS: HEPARIN 5,000 UNIT/1 ML VIAL SUB-Q SCH ×2 (06:10→15:54)
[2020-03-10] MEDS ORDERED: SPIRONOLACTONE 25 MG TAB PO SCH (10:00)
[2020-03-10] MEDS ORDERED: ASPIRIN 81 MG TAB CHEW PO SCH (10:00)
[2020-03-10] MEDS ORDERED: FUROSEMIDE 40 MG TAB PO SCH (10:00)
--- NOTE | 2020-03-10 10:08 | Progress Note ---
Assessment and Plan Currently stable cardiac status. Pt appears to be nearing/at euvolemia. Convert IV lasix to PO lasix daily. Pt may discharge from cardiology standpoint. Cessation of illicit drug use and tobacco use strongly encouraged. Pt verbalizes understanding. Follow up in our [place] office with Dr. BRITTNEY Vásquez on 03/16/2020 @ 3:00PM. The patient has been seen in conjunction with Dr. Antonio who agrees with the assessment and plan of care. - Patient Problems (1) Acute HFrEF (heart failure with reduced ejection fraction) Current Visit: Yes Status: Acute (2) Cardiomyopathy Current Visit: Yes Status: Chronic (3) Sinus tachycardia Current Visit: Yes Status: Acute (4) HTN Current Visit: Yes Status: Chronic (5) History of cocaine use Current Visit: Yes Status: Chronic (6) Mitral regurgitation Current Visit: Yes Status: Chronic (7) Tricuspid regurgitation Current Visit: Yes Status: Chronic (8) Pulmonary hypertension Current Visit: Yes Status: Chronic (9) Tobacco use Current Visit: Yes Status: Chronic Subjective Date of service: 03/10/20 Principal diagnosis: HF Interval history: pt resting in bed, feeling better. in SR HR 80s on tele. Objective Last Vital Signs Temp 97.6 F 03/10/20 07:32 Pulse 85 03/10/20 07:32 Resp 20 03/10/20 07:32 BP 114/72 03/10/20 07:32 Pulse Ox 99 03/10/20 07:32 - Physical Examination General: No Apparent Distress HEENT: Positive: PERRL, Normocephaly, Mucus Membranes Moist Neck: Positive: neck supple, trachea midline Cardiac: Positive: Reg Rate and Rhythm, S1/S2 Lungs: Positive: Decreased Breath Sounds Neuro: Positive: Grossly Intact Abdomen: Negative: Tender Skin: Negative: Rash Musculoskeletal: No Pain Extremities: Absent: edema - Labs and Meds Comprehensive Metabolic Panel 03/10/20 Range/Units 04:38 Sodium 136 L (137-145) mmol/L Potassium 3.9 (3.6-5.0) mmol/L Chloride 98.7 (98-107) mmol/L Carbon Dioxide 24 (22-30) mmol/L BUN 35 H (9-20) mg/dL Creatinine 1.0 (0.8-1.3) mg/dL Glucose 293 H (75-100) mg/dL Calcium 9.2 (8.4-10.2) mg/dL - Imaging and Cardiology EKG: report reviewed, image reviewed Echo: report reviewed (02/2020: EF 40-45%, mild LVH, diastolic dysfunction, mild AR, mild MR, trace TR, RVSP 9mmHg. 08/20/2019 which showed EF 30-35%, mod LVH, grade II diastolic dysfunction, RV mildly dilated, LA vol mod increased, RA mildly dilated, mod to severe MR, mod TR, mod pulm HTN with RVSP 55mmHg, trace circumferential pericardial effusion. ) - EKG Sinus rhythms and dysrhythmias: sinus rhythm
[2020-03-10] MEDS: LISINOPRIL 40 MG TAB PO SCH (10:43)
[2020-03-10] MEDS: carvediloL 12.5 MG TAB PO SCH (10:43)
[2020-03-10] MEDS: POTASSIUM CHLORIDE ER 20 MEQ TAB PO SCH (10:43)
[2020-03-10] MEDS: MULTIVITAMINS ,THERAPEUTIC TAB PO SCH (10:44)
--- NOTE | 2020-03-10 12:58 | Discharge Summary ---
Providers - Providers Date of Admission: 03/09/20 12:02 Date of discharge: 03/10/20 Attending physician: KINJAL BUTLER 03/08/20 21:57 Consult to Dietitian/Nutrition [CONS] Routine Physician Instructions: Reason For Exam: Reason for Consult: Diet education Consult to Physician [CONS] Routine Comment: Consulting Provider: DAGMAR POLO Physician Instructions: Reason For Exam: CHF EXACERBATION Primary care physician: [employer] Hospitalization Condition: Stable Hospital course: 69-year-old male with known history of diabetes mellitus, hypertension, history of mitral regurgitation, pulmonary hypertension, CHF with ejection fraction of 30 to 35% presenting to the emergency room today complaining of shortness of breath which has been ongoing for the past few days. Patient was brought in by EMS and upon arrival her oxygen saturation was about 89% on room air patient was placed on Venturi mask with improvement of oxygen saturation to 95%. Patient indicates that he has been having orthopnea and paroxysmal nocturnal dyspnea. He also indicates that he has been compliant with his medications. He denies any fever or chills, no nausea vomiting, no headache or dizziness, denies any cough, no sick contacts or no recent travel. Patient denies any contact with anyone with COVID-19. (1) Acute HFrEF (heart failure with reduced ejection fraction) patient was started on diuretics, BB, ARBs Floor Space Allocator consulted ECHO done patient condition has improved-patient cleared for discharge by bench examiner patient strongly advised to continue current medical care at home Patient also advised to f/u with his PCP and bench examiner (2) Acute respiratory failure with hypoxia-resolved Patient on room air at time of discharge assessment he denies shortness of breath and chest pain . (3) Hypertension-stable : Advised to continue his routine med and f/u with his PCP after d/c Disposition: DC-01 TO HOME OR SELFCARE Core Measure Documentation - Palliative Care Palliative Care/ Comfort Measures: Not Applicable - Core Measures Any of the following diagnoses?: none Exam - Constitutional Vitals: Temp Pulse Resp BP Pulse Ox 97.8 F 88 18 101/57 100 03/10/20 11:44 03/10/20 11:45 03/10/20 11:44 03/10/20 11:44 03/10/20 11:45 General appearance: Present: no acute distress, well-nourished - EENT Eyes: Present: PERRL ENT: hearing intact, clear oral mucosa - Neck Neck: Present: supple, normal ROM - Respiratory Respiratory effort: normal Respiratory: bilateral: CTA - Cardiovascular Heart rate: 68 Heart Sounds: Present: S1 & S2. Absent: rub, click - Extremities Extremities: pulses symmetrical, No edema Peripheral Pulses: within normal limits - Abdominal General gastrointestinal: Present: soft, non-tender, non-distended, normal bowel sounds Male genitourinary: Present: normal - Integumentary Integumentary: Present: clear, warm, dry - Musculoskeletal Musculoskeletal: gait normal, strength equal bilaterally - Psychiatric Psychiatric: appropriate mood/affect, intact judgment & insight - Neurologic Neurologic: CNII-XII intact, moves all extremities - Allied Health Allied health notes reviewed: nursing Plan Activity: fall precautions Weight Bearing Status: Weight Bear as Tolerated Diet: low fat, low cholesterol, low salt, low carbohydrate Special Instructions: record daily weights, smoking cessation Follow up with: PRIMARY CAREMD [Primary Care Provider] - 7 Days DAGMAR POLO MD [Staff Physician] - 7 Days Prescriptions: Spironolactone [Aldactone] 25 mg PO QDAY 30 Days #30 tablet carvediloL [Coreg] 12.5 mg PO BID 30 Days #180 tablet Potassium Chloride [K-Dur] 20 meq PO QDAY 30 Days #30 tablet Furosemide [Lasix TAB] 40 mg PO QDAY 30 Days #30 tablet lisinopriL [Zestril TAB] 40 mg PO QDAY 30 Days #30 tablet
[2020-03-10 16:16] VITALS: BP 125/79
== END 2020-03-10 17:15 | disposition home or self-care (01) | DRG 291 ==
LOC: ED 18:31 → 4A 21:24 → OBSVTOIN 03-09 12:02
PROVIDERS: ADMIT Internal Medicine Geriatric Medicine; ATTEND Hospitalist
DX: I11.0 Hypertensive heart disease with heart failure (principal); J96.01 Acute respiratory failure with hypoxia; I50.23 Acute on chronic systolic (congestive) heart failure; J90 Pleural effusion, not elsewhere classified; I42.9 Cardiomyopathy, unspecified; E11.9 Type 2 diabetes mellitus without complications; I27.20 Pulmonary hypertension, unspecified; F17.200 Nicotine dependence, unspecified, uncomplicated; E78.5 Hyperlipidemia, unspecified; F14.90 Cocaine use, unspecified, uncomplicated; I08.3 Combined rheumatic disorders of mitral, aortic and tricuspid valves
CPT/HCPCS: 36415; 71045; 71046; 80048; 80053; 82962; 83880; 84484; 85007; 85025; 85610; 87641; 93306; 99406; G0378; J1644; J1940